=== PATIENT | female | born 1965 | race Two or more races ===

== ENCOUNTER 2017-07-13 17:52 | Emergency (ER) | payer OTHER ==
[2017-07-13 17:58] VITALS: BMI 26.6
[2017-07-13] MEDS ORDERED: ASPIRIN 325 MG ENTERIC COATED TABLET (FP) PO ONE (17:59)
--- NOTE | 2017-07-13 18:00 | PDOC ---
Rapid Medical Evaluation Time Seen by Provider: 07/13/17 17:53 Medical Evaluation: Allergies Allergy/AdvReac Type Severity Reaction Status Date / Time No Known Allergies Allergy Verified 04/26/13 10:51 07/13/17 17:54 The patient presents with a chief complaint of: Palpitations, blurry vision, high blood pressure since last night. Pt. is compliant with blood pressure meds. States it was 185 systolic at home. Currently 150/ 78. Took 81mg of aspirin today, Admits to occasional nausea. No vomiting. I have performed a brief in-person evaluation of this patient; Pertinent physical exam findings: ambulatory, in no respiratory distress, RRR, epigastric tenderness I have ordered the following: CBC, CMP, Troponin, PT/INR, lipase EKG, CXR, aspirin The patient will proceed to the ED for further evaluation.
[2017-07-13] MEDS ORDERED: ASPIRIN COATED 81 MG TABLET.EC ONE (18:15)
[2017-07-13 18:19] LABS: BASO % 1.2 % (0-2.0); EOS % 2.2 % (0-4.5); HEMATOCRIT 45.6 % (32.4-45.2); HEMOGLOBIN 15.4 GM/dL (10.7-15.3); LYMPH % 32.3 % (8-40); MCH 30.5 pg (25.7-33.7); MCHC 33.8 g/dl (32.0-36.0); MEAN CELL VOLUME 90.2 fl (80-96); MEAN PLT VOLUME 8.8 fl (7.5-11.1); MONO % 8.4 % (3.8-10.2); NEUT % 55.9 % (42.8-82.8); PLATELET COUNT 321 K/MM3 (134-434); RBC 5.05 M/mm3 (3.60-5.2); RDW 12.6 % (11.6-15.6)
[2017-07-13 18:49] LABS: INR 0.89 (0.82-1.09); PROTHROMBIN TIME (PATIENT) 10.1 SEC (9.98-11.88)
[2017-07-13 18:59] LABS: ALBUMIN 4.2 g/dl (3.4-5.0); ANION GAP 7 (8-16); BILIRUBIN,TOTAL 0.1 mg/dL (0.2-1.0); BLOOD UREA NITROGEN 17 mg/dL (7-18); CALCIUM 9.3 mg/dL (8.5-10.1); CHLORIDE 102 mmol/L (98-107); CO2 30 mmol/L (21-32); CREATININE 0.7 mg/dL (0.55-1.02); GLUCOSE,RANDOM 82 mg/dL (74-106); POTASSIUM 4.5 mmol/L (3.5-5.1); SGOT/AST 18 U/L (15-37); SGPT/ALT 38 U/L (12-78); SODIUM 139 mmol/L (136-145); TOT PROT 8.1 g/dl (6.4-8.2)
[2017-07-13 19:00] LABS: ALK PHOS 108 U/L (45-117)
[2017-07-13 19:13] LABS: LIPASE 400 U/L (73-393)
--- NOTE | 2017-07-13 20:45 | PDOC ---
History of Present Illness - General History Source: Patient Exam Limitations: No Limitations - History of Present Illness Initial Comments: 07/13/17 20:49 The patient is a 51 year old female with a significant PMH of HTN and hyperlipidemia who presents to the emergency department with palpitations beginning approximately this morning. The patient reports a sudden onset of palpitations with no associated chest pain this morning. She reports taking her blood pressure medications and an aspirin in the afternoon to some relief. She reports regular compliance with her HTN medications. She reports her palpitations have resolved upon presentation. The patient denies shortness of breath. The patient denies headache and dizziness. Denies fever, chills, nausea, vomit, diarrhea and constipation. Denies dysuria, frequency, urgency and hematuria. Allergies: NKA Past surgical history: Cholecystectomy. Social history: Social alcohol use. No reported cigarette or drug use. PCP: Dr. Scott Ponce <Drew Michel - Last Filed: 07/13/17 20:48> - General History Source: Patient <Jt Bernal - Last Filed: 07/13/17 20:51> - General Chief Complaint: Chest Pain Stated Complaint: BLOOD PRESSURE/ CHEST PAIN Time Seen by Provider: 07/13/17 17:53 Past History <Drew Michel - Last Filed: 07/13/17 20:48> - Past Medical History COPD: No HTN: Yes Hypercholesterolemia: Yes - Surgical History Cholecystectomy: Yes - Suicide/Smoking/Psychosocial Hx Smoking History: Smoker current status UNK Information on smoking cessation initiated: No Hx Alcohol Use: No Drug/Substance Use Hx: No Substance Use Type: None <Jt Bernal - Last Filed: 07/13/17 20:51> - Past Medical History Allergies/Adverse Reactions: Allergies Allergy/AdvReac Type Severity Reaction Status Date / Time No Known Allergies Allergy Verified 07/13/17 17:58 Home Medications: Ambulatory Orders Aspirin [ASA -] 81 mg PO DAILY 04/26/13 Lisinopril [Prinivil -] mg PO DAILY 04/26/13 Simvastatin [Zocor] 40 mg PO HS 04/26/13 Review of Systems - Review of Systems Able to Perform ROS?: Yes Comments:: 07/13/17 20:49 CONSTITUTIONAL: Absent: fever, chills, diaphoresis, generalized weakness, malaise, loss of appetite HEENT: Absent: rhinorrhea, nasal congestion, throat pain, throat swelling, difficulty swallowing, mouth swelling, ear pain, eye pain, visual Changes CARDIOVASCULAR: (+) Palpitations (resolved). Absent: chest pain, syncope, palpitations, irregular heart rate, lightheadedness , peripheral edema RESPIRATORY: Absent: cough, shortness of breath, dyspnea with exertion, orthopnea, wheezing, stridor, hemoptysis GASTROINTESTINAL: Absent: abdominal pain, abdominal distension, nausea, vomiting, diarrhea, constipation, melena, hematochezia GENITOURINARY: Absent: dysuria, frequency, urgency, hesitancy, hematuria, flank pain, genital pain MUSCULOSKELETAL: Absent: myalgia, arthralgia, joint swelling SKIN: Absent: rash, itching, pallor HEMATOLOGIC/IMMUNOLOGIC: Absent: easy bleeding, easy bruising, lymphadenopathy, frequent infections ENDOCRINE: Absent: unexplained weight gain, unexplained weight loss, heat intolerance, cold intolerance NEUROLOGIC: Absent: headache, focal weakness or paresthesias, dizziness, unsteady gait, seizure, mental status changes, bladder or bowel incontinence PSYCHIATRIC: Absent: anxiety, depression, suicidal or homicidal ideation, hallucinations. <Drew Michel - Last Filed: 07/13/17 20:48> *Physical Exam - Vital Signs Last Vital Signs Temp Pulse Resp BP Pulse Ox 97.6 F 70 18 157/75 100 07/13/17 17:54 07/13/17 17:54 07/13/17 17:54 07/13/17 17:54 07/13/17 17:54 - Physical Exam Comments: 07/13/17 20:49 GENERAL: Well developed, well nourished. Awake and alert. No acute distress. HEENT: Normocephalic, atraumatic. PERRLA, EOMI. No conjunctival pallor. Sclera are non- icteric. Moist mucous membranes. Oropharynx is clear. NECK: Supple. Full ROM. No JVD. Carotid pulses 2+ and symmetric, without bruits. No thyromegaly. No lymphadenopathy. CARDIOVASCULAR: Regular rate and rhythm. No murmurs, rubs, or gallops. Distal pulses are 2+ and symmetric. PULMONARY: No evidence of respiratory distress. Lungs clear to auscultation bilaterally. No wheezing, rales or rhonchi. ABDOMINAL: Soft. Non-tender. Non-distended. No rebound or guarding. No organomegaly. Normoactive bowel sounds. MUSCULOSKELETAL Normal range of motion at all joints. No bony deformities or tenderness. No CVA tenderness. EXTREMITIES: No cyanosis. No clubbing. No edema. No calf tenderness. SKIN: Warm and dry. Normal capillary refill. No rashes. No jaundice. NEUROLOGICAL: Alert, awake, appropriate. Cranial nerves 2-12 intact. No deficits to light touch and temperature in face, upper extremities and lower extremities. No motor deficits in the in face, upper extremities and lower extremities. Normoreflexic in the upper and lower extremities. Normal speech. Toes are downgoing bilaterally. Gait is normal without ataxia. PSYCHIATRIC: Cooperative. Good eye contact. Appropriate mood and affect. <Drew Michel - Last Filed: 07/13/17 20:48> - Vital Signs Last Vital Signs Temp Pulse Resp BP Pulse Ox 97.6 F 70 18 157/75 100 07/13/17 17:54 07/13/17 17:54 07/13/17 17:54 07/13/17 17:54 07/13/17 17:54 <Jt Bernal - Last Filed: 07/13/17 20:51> ED Treatment Course - LABORATORY CBC & Chemistry Diagram: 07/13/17 18:10 07/13/17 18:12 - ADDITIONAL ORDERS Additional order review: Laboratory Results 07/13/17 07/13/17 07/13/17 18:12 18:12 18:12 PT with INR 10.10 INR 0.89 Sodium 139 Potassium 4.5 Chloride 102 Carbon Dioxide 30 Anion Gap 7 L BUN 17 Creatinine 0.7 Creat Clearance w eGFR > 60 Random Glucose 82 Calcium 9.3 Total Bilirubin 0.1 L D AST 18 ALT 38 Alkaline Phosphatase 108 Creatine Kinase 109 Troponin I < 0.02 Total Protein 8.1 Albumin 4.2 Lipase 400 H 07/13/17 18:10 RBC 5.05 MCV 90.2 MCHC 33.8 RDW 12.6 MPV 8.8 Neutrophils % 55.9 Lymphocytes % 32.3 Monocytes % 8.4 Eosinophils % 2.2 Basophils % 1.2 - Medications Given in the ED: ED Medications Discontinued Medications Generic Name Dose Route Start Last Admin Trade Name Freq PRN Reason Stop Dose Admin Aspirin 162 mg 07/13/17 17:59 07/13/17 18:17 Ecotrin - PO 07/13/17 18:00 162 mg ONCE ONE Administration <Drew Michel - Last Filed: 07/13/17 20:48> - LABORATORY CBC & Chemistry Diagram: 07/13/17 18:10 07/13/17 18:12 - ADDITIONAL ORDERS Additional order review: Laboratory Results 07/13/17 07/13/17 07/13/17 18:12 18:12 18:12 PT with INR 10.10 INR 0.89 Sodium 139 Potassium 4.5 Chloride 102 Carbon Dioxide 30 Anion Gap 7 L BUN 17 Creatinine 0.7 Creat Clearance w eGFR > 60 Random Glucose 82 Calcium 9.3 Total Bilirubin 0.1 L D AST 18 ALT 38 Alkaline Phosphatase 108 Creatine Kinase 109 Troponin I < 0.02 Total Protein 8.1 Albumin 4.2 Lipase 400 H 07/13/17 18:10 RBC 5.05 MCV 90.2 MCHC 33.8 RDW 12.6 MPV 8.8 Neutrophils % 55.9 Lymphocytes % 32.3 Monocytes % 8.4 Eosinophils % 2.2 Basophils % 1.2 - Medications Given in the ED: ED Medications Discontinued Medications Generic Name Dose Route Start Last Admin Trade Name Freq PRN Reason Stop Dose Admin Aspirin 162 mg 07/13/17 17:59 07/13/17 18:17 Ecotrin - PO 07/13/17 18:00 162 mg ONCE ONE Administration <Jt Bernal - Last Filed: 07/13/17 20:51> Medical Decision Making - Medical Decision Making 07/13/17 20:45 Dr. Bernal: The scribe's documentation has been prepared under my direction and personally reviewed by me in its entirery. I confirm that the note above accurately reflects all work, treatment, procedures, and medical decision making performed by me. <Jt Bernal - Last Filed: 07/13/17 20:51> *DC/Admit/Observation/Transfer - Attestations Scribe Attestion: 07/13/17 20:49 Documentation prepared by Drew Michel, acting as emergency medical dispatcher for Jt Bernal DO. <Drew Michel - Last Filed: 07/13/17 20:48> - Discharge Dispostion Admit: No <Jt Bernal - Last Filed: 07/13/17 20:51> Diagnosis at time of Disposition: Palpitations - Discharge Dispostion Disposition: HOME Condition at time of disposition: Stable - Referrals Referrals: Scott Ponce MD [Primary Care Provider] - Tucker Mena MD [Staff Physician] - - Patient Instructions Printed Discharge Instructions: DI for Palpitations Print Language: CHILEAN - Post Discharge Activity
[2017-07-13 20:57] VITALS: BP 156/72; PULSE 72; TEMP 97.4
--- NOTE | 2017-07-14 09:56 | EKG ---
Test Reason : Blood Pressure : / mmHG Vent. Rate : 065 BPM Atrial Rate : 065 BPM P-R Int : 128 ms QRS Dur : 080 ms QT Int : 394 ms P-R-T Axes : 053 009 064 degrees QTc Int : 409 ms NORMAL SINUS RHYTHM NORMAL ECG WHEN COMPARED WITH ECG OF 26-APR-2013 11:05, NO SIGNIFICANT CHANGE WAS FOUND Confirmed by CAROL PIZARRO MD ([id number]) on 07/14/2017 9:56:25 AM Referred By: Confirmed By:CAROL PIZARRO MD
== END 2017-07-13 20:57 | disposition home or self-care (01) ==
LOC: JER 17:52
DX: R00.2 Palpitations (principal); I10 Essential (primary) hypertension; E78.00 Pure hypercholesterolemia, unspecified
CPT/HCPCS: 36415; 80053; 82550; 83690; 84484; 85025; 85610; 93005; 93010; 99281-25